=== PATIENT | male | born 1985 | race Caucasian/White ===

== ENCOUNTER 2020-06-18 16:33 | Emergency (ER) | payer BC ==
[2020-06-18] MEDS ORDERED: HYDROmorphone 1 MG/ML Syringe IVPUSH ONE (17:00)
[2020-06-18] MEDS ORDERED: Ondansetron 4 MG/2 ML SDV IVPUSH ONE (17:00)
[2020-06-18] MEDS ORDERED: Sodium Chloride 0.9% 10 ML Syringe FLUSH PRN ×2 (17:00→17:10)
[2020-06-18] MEDS ORDERED: Iopamidol 612 MG/ML 100 ML Bottle IVPUSH ONE (17:10)
[2020-06-18] MEDS ORDERED: Iopamidol 612 MG/ML 50 ML SDV IVPUSH ONE (17:10)
--- NOTE | 2020-06-18 17:48 | CT ---
CT abdomen and pelvis Technique: Multiple axial sections were obtained from slightly below the top the liver inferiorly through the pubic symphysis. Intravenous contrast was utilized. No oral contrast has been given. Delayed images were obtained through the bladder. Reconstructed coronal and sagittal images were obtained. Comparison: No previous abdominal imaging is available. Findings: Visualized lung bases show nothing acute. Visualized liver shows nothing acute. Mild fatty infiltration is noted. Spleen appears within normal limits. Adrenal glands show no nodule. Pancreas is normal. Gallbladder contains no calcified gallstones. Kidneys show symmetric contrast enhancement and appear within normal limits. Aorta shows no aneurysm. No retroperitoneal adenopathy or mesenteric abnormalities are seen. No pelvic mass or adenopathy is seen. No free fluid or inflammatory change is appreciated. Bone window settings were reviewed. Mildly displaced fractures are noted within the right transverse process of L1, L2, L3 and L4. Scattered degenerative change is noted within the spine. No other spinal fracture is appreciated. No fracture within the pelvis or hips is appreciated. Impression: 1. Mildly displaced transverse process fractures on the right side at L1-L4. 2. No other acute abnormality is appreciated on CT study of the abdomen and pelvis. Diagnostic code #3 Study was dictated in MDT
--- NOTE | 2020-06-18 17:49 | EDM.PDOC ---
ED HPI GENERAL MEDICAL PROBLEM - General Chief Complaint: Trauma Stated Complaint: HIP AND RIB INJURY Time Seen by Provider: 06/18/20 16:44 Source of Information: Reports: Patient, RN Notes Reviewed History Limitations: Reports: No Limitations - History of Present Illness INITIAL COMMENTS - FREE TEXT/NARRATIVE: Patient is a 34 year old male who presents to the ED for the evaluation of his hip and rib injury. Patient states he is having some right flank pain from a fall he received earlier this morning at around 10 AM. He was on the last step from the top of an 8 foot ladder when the patient's footing went out underneath of him, he held onto the roof, the ladder fell down and folded up. He states that he ended up letting go the roof and fell on top of the ladder onto his right posterior flank/lower rib margin. He has been having pain in his right flank and ribs ever since. He states that he is having some mild increase shortness of breath due to the pain, but he is not had any fevers or chills, or any other sick-like symptoms. He is not peed since the injury, so is not sure as he has had any blood in his urine. He did not lose his consciousness or hit his head. Patient went to the walk-in clinic for evaluation but they deferred him here for management, as they state they would not of been able to do anything for him. Right Flank Pain Score (Numeric/FACES): 7 - Related Data Allergies Allergy/AdvReac Type Severity Reaction Status Date / Time No Known Allergies Allergy Verified 06/18/20 16:47 Home Meds: Home Meds Acetaminophen/oxyCODONE [Percocet 325-5 MG] 1 each PO Q6H PRN #20 tab 06/18/20 [Rx] Naproxen [Naprosyn] 500 mg PO Q12HR #20 tab 06/18/20 [Rx] Orphenadrine [Norflex] 100 mg PO BID PRN #20 tab 06/18/20 [Rx] Past Medical History - Past Health History Medical/Surgical History: Denies Medical/Surgical History - Infectious Disease History Infectious Disease History: Reports: None Social & Family History - Tobacco Use Smoking Status *Q: Current Every Day Smoker Years of Tobacco use: 3 Packs/Tins Daily: 0.2 - Caffeine Use Caffeine Use: Reports: None - Recreational Drug Use Recreational Drug Use: No Review of Systems - Review of Systems Review Of Systems: Comprehensive ROS is negative, except as noted in HPI. ED EXAM, GENERAL - Physical Exam Exam: See Below Exam Limited By: No Limitations General Appearance: Alert, WD/WN, No Apparent Distress (pt appears to be in mild pain but in no distress) Respiratory/Chest: No Respiratory Distress, Lungs Clear, Normal Breath Sounds, No Accessory Muscle Use, Chest Non-Tender Cardiovascular: Normal Peripheral Pulses, Regular Rate, Rhythm, No Murmur GI/Abdominal: Normal Bowel Sounds, Soft, No Distention, No Mass, Tender (entire posteriolateral right abdomen/flank area is tender to palpation, from rib border to top of hip) Extremities: Normal Inspection, Normal Capillary Refill Neurological: Alert, Oriented, Normal Cognition, No Motor/Sensory Deficits Psychiatric: Normal Affect, Normal Mood Skin Exam: Warm, Dry, Intact, No Rash, Ecchymosis (to right flank) Course - Vital Signs Last Recorded V/S: Last Vital Signs Temp 96.2 F L 06/18/20 16:43 Pulse 88 06/18/20 16:43 Resp 16 06/18/20 16:43 BP 141/94 H 06/18/20 16:43 Pulse Ox 97 06/18/20 16:43 - Orders/Labs/Meds Orders: Active Orders 24 hr Category Date Time Status Peripheral IV Care [RC] . DIRECTED Care 06/18/20 17:00 Ordered Sodium Chloride 0.9% [Saline Flush] Med 06/18/20 17:00 Ordered 10 ml FLUSH ASDIRECTED PRN Sodium Chloride 0.9% [Saline Flush] Med 06/18/20 17:10 Active 10 ml FLUSH ONETIME PRN DME for Discharge [COMM] Routine Oth 06/18/20 18:14 Ordered Peripheral IV Insertion Adult [OM.PC] Routine Oth 06/18/20 17:00 Ordered Medication Orders Sodium Chloride (Saline Flush) 10 ml FLUSH ASDIRECTED PRN PRN Reason: Keep Vein Open Last Admin: 06/18/20 17:13 Dose: 10 ml Documented by: WILL Sodium Chloride (Saline Flush) 10 ml FLUSH ONETIME PRN PRN Reason: Keep Vein Open Last Admin: 06/18/20 17:21 Dose: 10 ml Documented by: KESHA Meds: Medications Generic Name Dose Route Start Last Admin Trade Name Lissette PRN Reason Stop Dose Admin Sodium Chloride 10 ml 06/18/20 17:00 06/18/20 17:13 Saline Flush FLUSH 10 ml ASDIRECTED PRN Administration Keep Vein Open Sodium Chloride 10 ml 06/18/20 17:10 06/18/20 17:21 Saline Flush FLUSH 10 ml ONETIME PRN Administration Keep Vein Open Discontinued Medications Generic Name Dose Route Start Last Admin Trade Name Lissette PRN Reason Stop Dose Admin Hydromorphone HCl 1 mg 06/18/20 17:00 06/18/20 17:12 Dilaudid IVPUSH 06/18/20 17:01 1 mg ONETIME ONE Administration Iopamidol 100 ml 06/18/20 17:10 06/18/20 17:20 Isovue-300 (61%) IVPUSH 06/18/20 17:11 100 ml ONETIME ONE Administration Iopamidol 25 ml 06/18/20 17:10 06/18/20 17:20 Isovue-300 (61%) IVPUSH 06/18/20 17:11 25 ml ONETIME ONE Administration Ondansetron HCl 4 mg 06/18/20 17:00 06/18/20 17:10 Zofran IVPUSH 06/18/20 17:01 4 mg ONETIME ONE Administration - Re-Assessments/Exams Free Text/Narrative Re-Assessment/Exam: 06/18/20 17:51 Patient presents to the ED for evaluation of his injuries. I have ordered abdomen CT with IV contrast for further internal injury, and rib x-rays for the possibility of fracture at this time. Patient was given 1 mg Dilaudid along with Zofran for pain management. 06/18/20 18:18 The patient's chest x-ray demonstrates a fracture within the posterior right 11th rib. Otherwise no other acute processes were seen on the x-rays. CT demonstrates mildly displaced transverse process fractures on the right side at L1-L4. No other spinal fracture appreciated, no other abdominal trauma appreciated. I did call Dr. Morales, neurosurgeon at [facility] in [place] for a referral on the states transverse process fractures, he states to place the patient in an abdominal binder if they can tolerate it, and then give him some pain management, he states unfortunately these are more like rib fractures and there is not a lot that can be done except for pain management. At this time if we do have an abdominal binder we will send this home with the patient, and have him follow-up with a primary care provider in the next week or 2, to make sure that his injuries are healing as expected. Departure - Departure Time of Disposition: 18:19 Disposition: Home, Self-Care 01 Condition: Good Clinical Impression: Multiple transverse process fractures, Contusion of abdominal wall, initial encounter Right rib fracture Qualifiers: Encounter type: initial encounter Rib fracture type: single rib Fracture type: closed Qualified Code(s): S22.31XA - Fracture of one rib, right side, initial encounter for closed fracture Lumbar transverse process fracture Qualifiers: Encounter type: initial encounter Fracture type: closed Qualified Code(s): S32.009A - Unspecified fracture of unspecified lumbar vertebra, initial encounter for closed fracture - Discharge Information *PRESCRIPTION DRUG MONITORING PROGRAM REVIEWED*: Yes *COPY OF PRESCRIPTION DRUG MONITORING REPORT IN PATIENT CASI: No Prescriptions: Naproxen [Naprosyn] 500 mg PO Q12HR #20 tab Orphenadrine [Norflex] 100 mg PO BID PRN #20 tab PRN Reason: Spasms Acetaminophen/oxyCODONE [Percocet 325-5 MG] 1 each PO Q6H PRN #20 tab PRN Reason: Pain Instructions: Rib Fracture, [id number], Transverse Process Fracture Referrals: PCP,None [Primary Care Provider] - Forms: ED Department Discharge Additional Instructions: You were evaluated in the ER today for your right flank/side pain. You had x-rays taken of your chest, along with a CT of your abdomen and pelvis. You do have a fracture within your posterior right 11th rib. You also have mildly displaced transverse process fractures on the right side at L1-L4. This is in your lumbar spine. A neurosurgeon by the name of Dr. Andrew cooley [facility] in [place] was consulted on your case, and he suggested the use of an abdominal binder for pain management along with other pain management medication. You were given a prescription for a strong pain medication, oxycodone/acetaminophen 5/325 mg, please take 1 tab every 6 hours as needed for pain not relieved by Tylenol or ibuprofen alone. Please note this medication does contain Tylenol in it, so do not take more than 4000 mg in a 24-hour time span. These medications can be addictive, so please take as few as possible to achieve adequate pain control. These meds can also be quite constipating, recommend that you increase your oral fluid intake and take a stool softener like MiraLAX while taking these medications. Do not drive while taking this medication. You were also given a prescription for Norflex, this is a muscle relaxer. Please use if you are having muscle spasms. You may take 1 tab every 12 hours as needed. You were also given a prescription for Naprosyn, a potent NSAID, you may take 1 tablet every 12 hours for pain management. Please try to use this more during the day, and reserve the oxycodone/acetaminophen for nighttime use only. Please wear the abdominal binder as much as tolerated for pain management. This will help limit the movement of your spine, and hopefully provide pain relief as well. You may use ice to the areas that are affected as tolerated. Recommend you follow-up with a primary care provider of choice, any family practice provider would be able to provide you with the services. This would be for follow-up of her injuries and to make sure everything is healing as appropriate. Please call our clinic [phone] to obtain an appoint with any family practice provider. Please return to the ER at any time if your symptoms change or worsen. Sepsis Event Note (ED) - Evaluation Sepsis Screening Result: No Definite Risk - Focused Exam Vital Signs: Vital Signs Temp Pulse Resp BP Pulse Ox 06/18/20 16:43 96.2 F L 88 16 141/94 H 97 - My Orders Last 24 Hours: My Active Orders 06/18/20 17:00 Peripheral IV Care [RC] . DIRECTED Sodium Chloride 0.9% [Saline Flush] 10 ml FLUSH ASDIRECTED PRN Peripheral IV Insertion Adult [OM.PC] Routine 06/18/20 17:10 Sodium Chloride 0.9% [Saline Flush] 10 ml FLUSH ONETIME PRN 06/18/20 18:14 DME for Discharge [COMM] Routine - Assessment/Plan Last 24 Hours: My Active Orders 06/18/20 17:00 Peripheral IV Care [RC] . DIRECTED Sodium Chloride 0.9% [Saline Flush] 10 ml FLUSH ASDIRECTED PRN Peripheral IV Insertion Adult [OM.PC] Routine 06/18/20 17:10 Sodium Chloride 0.9% [Saline Flush] 10 ml FLUSH ONETIME PRN 06/18/20 18:14 DME for Discharge [COMM] Routine
--- NOTE | 2020-06-18 17:53 | CR ---
Chest and bilateral ribs: Frontal view of the chest was obtained as well as 3 additional views of the right and left ribs. Findings: Heart size and mediastinum are normal. Lungs are clear with no acute parenchymal change. Fracture is noted within the right 11th rib. Recent CT study was reviewed which confirms a fracture within the posterior right 11th rib. No other definite rib fracture is seen. Impression: 1. Fracture within the right 11th rib. 2. Nothing acute is otherwise seen on frontal chest x-ray. No additional abnormality is appreciated. Diagnostic code #3 Study was dictated in MDT
== END 2020-06-18 18:42 | disposition home or self-care (01) ==
LOC: JD.ED 16:33
DX: S32.019A Unspecified fracture of first lumbar vertebra, initial encounter for closed fracture (principal); S32.029A Unspecified fracture of second lumbar vertebra, initial encounter for closed fracture; S32.039A Unspecified fracture of third lumbar vertebra, initial encounter for closed fracture; S32.049A Unspecified fracture of fourth lumbar vertebra, initial encounter for closed fracture; S22.31XA Fracture of one rib, right side, initial encounter for closed fracture; S30.1XXA Contusion of abdominal wall, initial encounter; F17.210 Nicotine dependence, cigarettes, uncomplicated; W11.XXXA Fall on and from ladder, initial encounter
CPT/HCPCS: 71111; 74177; 96374; 96375; 99284; J1170; J2405; Q9967

== ENCOUNTER 2020-09-19 09:37 | Emergency (ER) | payer BC ==
--- NOTE | 2020-09-19 10:43 | EDM.PDOC ---
ED HPI GENERAL MEDICAL PROBLEM - General Chief Complaint: Skin Complaint Stated Complaint: RASH Time Seen by Provider: 09/19/20 09:52 Source of Information: Reports: Patient History Limitations: Reports: No Limitations - History of Present Illness INITIAL COMMENTS - FREE TEXT/NARRATIVE: 35-year-old male presents to the emergency department with complaints of psoriasis, itching, and burning. Patient states that his psoriasis started about 4 months ago. He went to the walk-in clinic and was given a prescription for topical hydrocortisone cream which he used for 12 days. He finished this treatment about a month ago. He comes in this morning stating that over the course of the last 2 days the itching and burning has become unbearable and that his psoriasis is significantly worse. Approximately 75% of the patient's body surface area has psoriasis rash. Patient's chest abdomen, back, bilateral arms, bilateral legs. The top of the patient's feet is spared. Denies fever or chills. Generalized Pain Score (Numeric/FACES): 4 - Related Data Allergies Allergy/AdvReac Type Severity Reaction Status Date / Time No Known Allergies Allergy Verified 09/19/20 09:44 Home Meds: Home Meds Triamcinolone Acetonide [Triamcinolone Acetonide 0.1% Oint] 453.6 gm .XX BID #1 tube 09/19/20 [Rx] Past Medical History - Past Health History Medical/Surgical History: Denies Medical/Surgical History Dermatologic History: Reports: Psoriasis - Infectious Disease History Infectious Disease History: Reports: None Social & Family History - Tobacco Use Tobacco Use Status *Q: Never Tobacco User - Caffeine Use Caffeine Use: Reports: None - Recreational Drug Use Recreational Drug Use: No ED ROS GENERAL - Review of Systems Review Of Systems: See Below Constitutional: Denies: Fever, Chills HEENT: Reports: No Symptoms Respiratory: Reports: No Symptoms Cardiovascular: Reports: No Symptoms Endocrine: Reports: No Symptoms GI/Abdominal: Reports: No Symptoms : Reports: No Symptoms Musculoskeletal: Reports: No Symptoms Skin: Reports: Pruritis, Rash, Erythema, Urticaria, Other (Psoriasis) Neurological: Reports: No Symptoms Psychiatric: Reports: No Symptoms Hematologic/Lymphatic: Reports: No Symptoms Immunologic: Reports: No Symptoms ED EXAM, SKIN/RASH Exam: See Below Exam Limited By: Uncooperative General Appearance: Alert, Anxious Eye Exam: Bilateral Eye: PERRL Ears: Hearing Grossly Normal Nose: Normal Inspection Throat/Mouth: Normal Voice, No Airway Compromise Head: Atraumatic, Normocephalic Neck: Normal Inspection, Supple, Non-Tender, Full Range of Motion Respiratory/Chest: No Respiratory Distress, Lungs Clear, Normal Breath Sounds, No Accessory Muscle Use, Chest Non-Tender Cardiovascular: Normal Peripheral Pulses, Regular Rate, Rhythm, No Edema, No Murmur GI/Abdominal: Normal Bowel Sounds, Soft, Non-Tender, No Distention (Male) Exam: Deferred Rectal (Males) Exam: Deferred Back Exam: Normal Inspection, Full Range of Motion, Other (Psoriasis rash) Extremities: Other (Psoriasis rash noted to the front and back of bilateral lower extremities: Patchy type of rash, 100s percent of the skin area on the back of both calves has been affected. Bilateral upper extremities with psor iasis rash dorsal aspect of bilateral forearms 100% affected. Patchy rash to chest and abdomen. Patchy rash to entirety of back. The tops of the patient's feet have been spared. Rash is also noted circumferentially on the patient's neck and patchy rash noted to the patient's face.) Neurological: Alert, Oriented, Normal Cognition Psychiatric: Normal Affect, Normal Mood, Anxious Skin: Warm, Dry, Intact, Other (Psoriasis rash noted to the front and back of bilateral lower extremities: Patchy type of rash, 100s percent of the skin area on the back of both calves has been affected. Bilateral upper extremities with psoriasis rash dorsal aspect of bilateral forearms 100% affected. Patchy rash to chest and abdomen. Patchy rash to entirety of back. The tops of the patient's feet have been spared. Rash is also noted circumferentially on the patient's neck and patchy rash noted to the patient's face.) Location, Skin: Face, Neck, Chest, Abdomen, Back, Upper Extremity, Right, Upper Extremity, Left, Lower Extremity, Right, Lower Extremity, Left, Generalized. No: Palms, Soles, Groin Characteristics: Other (plaques noted to extensor surfaces; maculopapular in all other areas) Lymphatic: No Adenopathy Course - Vital Signs Text/Narrative:: I spoke with the rotary helper bus info consultant at [facility] in [place], Paulo Martínez MD. He was able to view pictures of the patient's skin as it had gotten approval to send these to dermatology from the patient. Dr. Martínez recommends the patient be started on triamcinolone 0.1% ointment to be applied twice daily for 2 weeks then every other day for 2 weeks, to be applied below the neck and avoid the groin area. He also states that patient needs to be seen within 1 week at dermatology. I have called [facility] in [place] and they are going to phone the patient on Wednesday and try to get him worked in to see a rotary helper as Dr. Martínez states the patient needs to be started on [employer]. Last Recorded V/S: Last Vital Signs Temp 97.6 F 09/19/20 09:46 Pulse 84 09/19/20 09:46 Resp 13 09/19/20 09:46 BP 142/97 H 09/19/20 09:46 Pulse Ox 100 09/19/20 09:46 Departure - Departure Time of Disposition: 11:09 Disposition: Home, Self-Care 01 Condition: Fair Clinical Impression: Psoriasis - Discharge Information Prescriptions: Triamcinolone Acetonide [Triamcinolone Acetonide 0.1% Oint] 453.6 gm .XX BID #1 tube Instructions: Psoriasis, [id number] Referrals: PCP,None [Primary Care Provider] - Forms: ED Department Discharge Additional Instructions: You are seen in the emergency department with complaints of psoriasis. I did consult rotary helper bus info consultant at [facility] in [place] and he recommends to be started on triamcinolone 0.1% ointment. You can apply this twice a day for 2 weeks then every other day for 2 more weeks. Avoid the groin area and anything above the neck. You will also need to follow-up with [facility] in [place]. They will be contacting you to schedule an appointment on Wednesday to get you in with in the next week or so. Should your condition worsen or change please return to the emergency department. Sepsis Event Note (ED) - Evaluation Sepsis Screening Result: No Definite Risk - Focused Exam Vital Signs: Vital Signs Temp Pulse Resp BP Pulse Ox 09/19/20 09:46 97.6 F 84 13 142/97 H 100
== END 2020-09-19 11:40 | disposition home or self-care (01) ==
LOC: JD.ED 09:37
DX: L40.9 Psoriasis, unspecified (principal)
CPT/HCPCS: 99282